=== PATIENT | female | born 1940 | race Caucasian/White ===

== ENCOUNTER → 2016-10-06 | Outpatient (CLI) | payer OTHER, MEDICARE ==
[~2016-10-06] MED LIST: ACET-789 PO; ALLP100T PO; ALPR0.2550 PO; CHOL200018 PO; CHOL4PAC19 PO; CPR500T PO; DICY10CA26 PO; DICY20TA57 PO; ERGO400C PO; HYDR12.570 PO; HYDR1TAB PO; HYDR1TAB86 PO; LISI20TA PO; LISI20TA2 PO; MELO-195 PO; MULT-608 PO; NFAMINITAB PO; NITR100C3 PO; OMEP40CA36 PO; OMG1KC PO; ONDA4TAB11 PO; ONDAN4ODT PO; PHEN200T16 PO; SMV20T PO; SULF-222 PO; VITA80006 PO
[2016-10-06 11:03] LABS: BASOPHILS % (AUTO) 1 % (0-10); EOSINOPHILS # (AUTO) 0.1 10^3/uL (0.0-0.3); EOSINOPHILS % (AUTO) 1 % (0-10); LYMPHOCYTES % (AUTO) 17 % (12-44); MEAN CORPUSCULAR HEMOGLOBIN 29 PG (25-34); MEAN CORPUSCULAR HGB CONC 32 G/DL (32-36); MEAN CORPUSCULAR VOLUME 90 FL (80-99); MEAN PLATELET VOLUME 10.6 FL (7.4-10.4); MONOCYTES # (AUTO) 0.6 X 10^3 (0.0-1.0); MONOCYTES % (AUTO) 11 % (0-12); NEUTROPHILS # (AUTO) 3.9 X 10^3 (1.8-7.8); NEUTROPHILS % (AUTO) 70 % (42-75); PLATELET COUNT 228 10^3/uL (130-400); RED BLOOD COUNT 4.96 10^6/uL (4.35-5.85); WHITE BLOOD COUNT 5.6 10^3/uL (4.3-11.0)
--- NOTE | 2016-10-06 11:30 | Diagnostic Imaging Report ---
INDICATION: Cough and congestion. COMPARISON: 10/25/2011. FINDINGS: The heart size, mediastinal configuration, and pulmonary vascularity are within normal limits. There is no pleural effusion, pneumothorax, or pneumonia. The osseous structures are unremarkable. IMPRESSION: No acute cardiopulmonary abnormality. Dictated by: Dictated on workstation # [id number]
== END ==
LOC: RAD 10:37
PROVIDERS: ATTEND Family Medicine
DX: R05 Cough (principal)
CPT/HCPCS: 36415; 71020; 85025

== ENCOUNTER → 2016-12-17 | Outpatient (CLI) | payer OTHER, MEDICARE ==
[2016-12-17 09:03] LABS: ALBUMIN 3.8 G/DL (3.2-4.5); BILIRUBIN,TOTAL 0.6 MG/DL (0.1-1.0); CALCIUM 8.6 MG/DL (8.5-10.1); CREATININE SERUM 0.97 MG/DL (0.60-1.30); POTASSIUM 3.3 MMOL/L (3.6-5.0); TOTAL PROTEIN 6.5 G/DL (6.4-8.2); URIC ACID 5.4 MG/DL (2.6-7.2)
[2016-12-17 09:25] LABS: THYROID STIMULATING HORMONE 2.65 UIU/ML (0.35-4.94)
== END ==
LOC: LAB 08:29
PROVIDERS: ATTEND Family Medicine
DX: E78.2 Mixed hyperlipidemia (principal); I10 Essential (primary) hypertension; M10.9 Gout, unspecified; R53.83 Other fatigue; E55.9 Vitamin D deficiency, unspecified
CPT/HCPCS: 36415; 80053; 80061; 82306; 84443; 84550

== ENCOUNTER → 2017-04-27 | Outpatient (CLI) | payer OTHER, MEDICARE ==
[2017-04-27 09:55] LABS: CALCIUM 8.7 MG/DL (8.5-10.1); CREATININE SERUM 0.94 MG/DL (0.60-1.30); POTASSIUM 3.7 MMOL/L (3.6-5.0)
== END ==
LOC: RAD 09:21
PROVIDERS: ATTEND Family Medicine
DX: Z12.31 Encounter for screening mammogram for malignant neoplasm of breast (principal); E87.6 Hypokalemia
CPT/HCPCS: 36415; 77067; 80048

== ENCOUNTER → 2017-08-24 | Outpatient (CLI) | payer OTHER, MEDICARE ==
[2017-08-24 08:05] LABS: BILIRUBIN,TOTAL 0.9 MG/DL (0.1-1.0); CREATININE SERUM 0.96 MG/DL (0.60-1.30); POTASSIUM 3.9 MMOL/L (3.6-5.0); TOTAL PROTEIN 6.9 GM/DL (6.4-8.2)
== END ==
LOC: LAB 07:34
PROVIDERS: ATTEND Family Medicine
DX: E87.6 Hypokalemia (principal)
CPT/HCPCS: 36415; 80053

== ENCOUNTER → 2018-04-28 | Outpatient (CLI) | payer OTHER, MEDICARE ==
--- NOTE | 2018-04-28 12:56 | Diagnostic Imaging Report ---
INDICATION: Routine screening. Comparison is made with prior mammogram from 04/27/2017 and 04/20/2016. 2-D and 3-D bilateral screening mammography was performed with CAD. The current study was also evaluated with a Computer Aided Detection (CAD) system. FINDINGS: Both breasts remain heterogeneously dense, limiting the sensitivity of mammography. The parenchymal pattern is stable. Small nodular densities in the outer portions of both breasts are stable. Biopsy clip in the inferior right breast is again noted. No new mass or malignant-appearing microcalcifications are seen. The axillae are unremarkable. IMPRESSION: No mammographic features suspicious for malignancy are identified. ACR BI-RADS Category 2: Benign findings. Result letter will be mailed to the patient. Note: At least 10% of breast cancer is not imaged by mammography. Dictated by: Dictated on workstation # [id number]
== END ==
LOC: RAD 07:42
PROVIDERS: ATTEND Family Medicine
DX: Z12.31 Encounter for screening mammogram for malignant neoplasm of breast (principal)
CPT/HCPCS: 77067

== ENCOUNTER → 2018-07-13 | Outpatient (CLI) | payer OTHER, MEDICARE ==
--- NOTE | 2018-07-13 11:08 | Diagnostic Imaging Report ---
INDICATION: Left foot injury. AP, Oblique and lateral views of the left foot are obtained. FINDINGS: No fracture or malalignment is identified. There is mild narrowing of the interphalangeal joint with mild marginal spurring. No fracture is seen. There is no abnormal lytic or sclerotic focus. Mild plantar calcaneal spurring is noted. IMPRESSION: No acute abnormality is identified. Dictated by: Dictated on workstation # [id number]
--- NOTE | 2018-07-13 11:13 | Diagnostic Imaging Report ---
INDICATION: Twisted left ankle, pain on the medial side. Time of exam 11:15 AM 3 views of the left ankle were obtained. Ankle mortise is well maintained. Talar dome is smooth. No fracture or dislocation is seen. There is a plantar calcaneal spur. IMPRESSION: No acute bony abnormality is detected. Dictated by: Dictated on workstation # [id number]
== END ==
LOC: RAD 10:36
PROVIDERS: ATTEND Nurse Practitioner Family
DX: S99.922A Unspecified injury of left foot, initial encounter (principal); X50.1XXA Overexertion from prolonged static or awkward postures, initial encounter; M25.572 Pain in left ankle and joints of left foot
CPT/HCPCS: 73610; 73630

== ENCOUNTER 2019-01-17 15:33 | Observation (INO) | payer OTHER, MEDICARE | END 2019-01-18 13:40 | disposition home or self-care (01) | LOC: 4TH 15:33 ==

== ENCOUNTER → 2019-05-05 | Outpatient (CLI) | payer OTHER, MEDICARE ==
[~2019-05-05] MED LIST changes: +ALLO100T PO; +ALPR0.5T7 PO; +AMLO5TAB9 PO; +ASCO500T5 PO; +C,E,1CAP2 PO; +CHOL10007 PO; +DOXA1TAB2 PO; +LISI-552 PO; +METO-395 PO; +MULT1TAB69 PO; +PANT40TA2 PO; +POTA8TAB6 PO; +PSYL3.4P5 PO; +SIMV20TA3 PO
--- NOTE | 2019-05-05 19:00 | Diagnostic Imaging Report ---
INDICATION: Routine screening. COMPARISON: Comparison is made with prior mammograms from 04/28/2018 and 04/27/2017. TECHNIQUE: 2-D and 3-D bilateral screening mammography was performed. The current study was also evaluated with a Computer Aided Detection (CAD) system. 3-D tomosynthesis was also performed and reviewed. FINDINGS: Both breasts remain heterogeneously dense, limiting the sensitivity of mammography. Marker clip in the inferior right breast is again noted. Benign nodule in the upper-outer right breast is stable. No new mass or malignant-appearing microcalcifications are seen. The axillae are unremarkable. IMPRESSION: No mammographic features suspicious for malignancy are identified. ACR BI-RADS Category 2: Benign findings. Result letter will be mailed to the patient. Note: At least 10% of breast cancer is not imaged by mammography. Dictated by: Dictated on workstation # [id number]
== END ==
LOC: RAD 14:56
PROVIDERS: ATTEND Family Medicine
DX: Z12.31 Encounter for screening mammogram for malignant neoplasm of breast (principal)
CPT/HCPCS: 77067

== ENCOUNTER → 2019-06-20 | Outpatient (CLI) | payer OTHER, MEDICARE ==
[2019-06-20 08:55] LABS: BASOPHILS % (AUTO) 1 % (0-10); EOSINOPHILS # (AUTO) 0.3 10^3/uL (0.0-0.3); EOSINOPHILS % (AUTO) 4 % (0-10); HEMATOCRIT 40 % (35-52); HEMOGLOBIN 12.4 G/DL (11.5-16.0); LYMPHOCYTES # (AUTO) 1.9 X 10^3 (1.0-4.0); LYMPHOCYTES % (AUTO) 28 % (12-44); MEAN CORPUSCULAR HEMOGLOBIN 29 PG (25-34); MEAN CORPUSCULAR HGB CONC 31 G/DL (32-36); MEAN CORPUSCULAR VOLUME 92 FL (80-99); MEAN PLATELET VOLUME 10.8 FL (7.4-10.4); MONOCYTES # (AUTO) 0.5 X 10^3 (0.0-1.0); MONOCYTES % (AUTO) 8 % (0-12); NEUTROPHILS # (AUTO) 4.1 X 10^3 (1.8-7.8); NEUTROPHILS % (AUTO) 59 % (42-75); PLATELET COUNT 192 10^3/uL (130-400); RED CELL DISTRIBUTION WIDTH 13.3 % (10.0-14.5); WHITE BLOOD COUNT 6.8 10^3/uL (4.3-11.0)
[2019-06-20 09:15] LABS: BILIRUBIN,TOTAL 0.8 MG/DL (0.1-1.0); CALCIUM 8.4 MG/DL (8.5-10.1); CREATININE SERUM 1.06 MG/DL (0.60-1.30); TOTAL PROTEIN 6.6 GM/DL (6.4-8.2)
[2019-06-20 09:37] LABS: FREE T4 (FREE THYROXINE) 0.93 NG/DL (0.70-1.48)
== END ==
LOC: LAB 08:38
PROVIDERS: ATTEND Family Medicine
DX: I10 Essential (primary) hypertension (principal); N28.9 Disorder of kidney and ureter, unspecified; R53.83 Other fatigue
CPT/HCPCS: 36415; 80053; 80061; 84439; 84443; 85025

== ENCOUNTER → 2019-08-02 | Outpatient (CLI) | payer OTHER, MEDICARE ==
[2019-08-02 09:53] LABS: ALBUMIN 4.4 GM/DL (3.2-4.5); BILIRUBIN,TOTAL 0.6 MG/DL (0.1-1.0); CALCIUM 8.7 MG/DL (8.5-10.1); CREATININE SERUM 1.13 MG/DL (0.60-1.30); POTASSIUM 3.5 MMOL/L (3.6-5.0); TOTAL PROTEIN 7.1 GM/DL (6.4-8.2)
== END ==
LOC: LAB 09:20
PROVIDERS: ATTEND Family Medicine
DX: E87.6 Hypokalemia (principal)
CPT/HCPCS: 36415; 80053

== ENCOUNTER → 2019-08-28 | Outpatient (CLI) | payer OTHER, MEDICARE ==
[~2019-08-28] MED LIST changes: +ASCO-413 PO; -ASCO500T5 PO; +CEFD300C3 PO; +FLUT16SP22; -METO-395 PO; +MTP100TCR PO; +OMEP40CA27 PO; +POTA-51; +SIMV20TA26 PO; -SIMV20TA3 PO
[2019-08-28 08:54] LABS: BASOPHILS % (AUTO) 1 % (0-10); EOSINOPHILS # (AUTO) 0.2 10^3/uL (0.0-0.3); EOSINOPHILS % (AUTO) 4 % (0-10); HEMATOCRIT 38 % (35-52); HEMOGLOBIN 12.1 G/DL (11.5-16.0); LYMPHOCYTES # (AUTO) 1.8 X 10^3 (1.0-4.0); LYMPHOCYTES % (AUTO) 36 % (12-44); MEAN CORPUSCULAR HEMOGLOBIN 29 PG (25-34); MEAN CORPUSCULAR HGB CONC 32 G/DL (32-36); MEAN CORPUSCULAR VOLUME 89 FL (80-99); MEAN PLATELET VOLUME 10.5 FL (7.4-10.4); MONOCYTES # (AUTO) 0.5 X 10^3 (0.0-1.0); MONOCYTES % (AUTO) 9 % (0-12); NEUTROPHILS # (AUTO) 2.5 X 10^3 (1.8-7.8); NEUTROPHILS % (AUTO) 51 % (42-75); PLATELET COUNT 188 10^3/uL (130-400); RED CELL DISTRIBUTION WIDTH 13.3 % (10.0-14.5); WHITE BLOOD COUNT 4.9 10^3/uL (4.3-11.0)
[2019-08-28 09:25] LABS: ALBUMIN 4.3 GM/DL (3.2-4.5); BILIRUBIN,TOTAL 0.8 MG/DL (0.1-1.0); CALCIUM 9.2 MG/DL (8.5-10.1); CREATININE SERUM 1.44 MG/DL (0.60-1.30); POTASSIUM 4.3 MMOL/L (3.6-5.0); TOTAL PROTEIN 6.7 GM/DL (6.4-8.2)
[2019-08-28 09:45] LABS: FREE T4 (FREE THYROXINE) 0.81 NG/DL (0.70-1.48)
== END ==
LOC: LAB 08:36
PROVIDERS: ATTEND Family Medicine
DX: I10 Essential (primary) hypertension (principal); E55.9 Vitamin D deficiency, unspecified; D64.9 Anemia, unspecified; R53.83 Other fatigue
CPT/HCPCS: 36415; 80053; 82306; 82607; 82728; 84439; 84443; 85025

== ENCOUNTER 2019-09-19 22:19 | Emergency (ER) | payer OTHER, MEDICARE ==
[~2019-09-19] VITALS: Ht 155 cm; Wt 69.9 kg
[~2019-09-19 22:19] MED LIST changes: -ASCO-413 PO; +ASCO500T5 PO; -CEFD300C3 PO; -FLUT16SP22; +METO-395 PO; -MTP100TCR PO; -OMEP40CA27 PO; -POTA-51; -SIMV20TA26 PO; +SIMV20TA3 PO
[2019-09-19] MEDS ORDERED: FLUT16SP22 (23:00)
[2019-09-19] MEDS ORDERED: POTA-51 (23:00)
[2019-09-19] MEDS ORDERED: ONDANSETRON 4 MG (ZOFRAN) ORAL DISSOLVE TAB PO ONE (23:15)
--- NOTE | 2019-09-20 00:53 | ED General ---
General Chief Complaint: Cough/Cold/Flu Symptoms Stated Complaint: HEADACHE / BODY ACHES / NAUSEA Nursing Triage Note: chills, nausea, bodyache, headache, cramps, nausea. since 2014 Nursing Sepsis Screen: No Definite Risk Source of Information: Patient Exam Limitations: No Limitations History of Present Illness Date Seen by Provider: Sep 20, 2019 Time Seen by Provider: 00:29 Initial Comments Here with report of nausea and body aches. States that she gets this occasionally. Does have history of disorder after gallbladder surgery and then had a ductal stone with surgery then. Has not had problems with that again but does occasionally get episodes of vomiting and aches like this. Did receive ondansetron shortly after arrival and that has helped her significantly and overall is feeling better now. Also reports nosebleeds a heavy, increasingly more frequent recently. Does have history of sinus infections and complains of sinus pressure currently. Did have a bleed to the left nostril tonight. Timing/Duration: 4-6 Hours Severity: Moderate Modifying Factors: improves with Medication Associated Systoms: No Chest Pain, No Cough; Fever/Chills, Nausea/Vomiting; No Weakness Allergies and Home Medications Allergies Coded Allergies: No Known Drug Allergies (Unverified , 04/13/11) Home Medications Allopurinol 100 Mg Tablet, 100 MG PO DAILY Prescribed by: JULIETH ABDALLA on 01/18/19 1256 Alprazolam 0.5 Mg Tablet, 0.5 MG PO TID PRN for ANXIETY, (Reported) Amlodipine Besylate 5 Mg Tablet, 5 MG PO DAILY in AM Prescribed by: JULIETH ABDALLA on 01/18/19 1256 Metoprolol Succinate 100 Mg Tab.er.24h, 100 MG PO HS Prescribed by: JULIETH ABDALLA on 01/18/19 1256 Pantoprazole Sodium 40 Mg Tablet.dr, 40 MG PO BID Prescribed by: JULIETH ABDALLA on 01/18/19 1256 Simvastatin 20 Mg Tablet, 20 MG PO HS, (Reported) Patient Home Medication List Home Medication List Reviewed: Yes Review of Systems Review of Systems Constitutional: see HPI, chills, fever EENTM: epistaxis, nose congestion Respiratory: No cough, No short of breath Cardiovascular: no symptoms reported Gastrointestinal: No abdominal pain; nausea; No vomiting Genitourinary: no symptoms reported Musculoskeletal: No back pain; muscle weakness Skin: no symptoms reported Psychiatric/Neurological: No Symptoms Reported All Other Systems Reviewed Negative Unless Noted: Yes Past Pfasynb-Frjohf-Ftlfkc Hx Past Med/Social Hx: Reviewed Nursing Past Med/Soc Hx Patient Social History Alcohol Use: Denies Use Recreational Drug Use: No Smoking Status: Never a Smoker 2nd Hand Smoke Exposure: No Recent Foreign Travel: No Contact w/Someone Who Travel: No Recent Infectious Disease Expo: No Recent Hopitalizations: No Physical Abuse: No Sexual Abuse: No Mistreated: No Fear: No Immunizations Up To Date Tetanus Booster (TDap): Unknown Date of Pneumonia Vaccine: Sep 20, 2010 Date of Influenza Vaccine: Jun 20, 2011 Seasonal Allergies Seasonal Allergies: Yes Past Medical History Surgeries: Yes (ERCP) Gallbladder, Hysterectomy, Orthopedic Respiratory: No Cardiac: Yes High Cholesterol, Hypertension Neurological: No : No Reproductive Disorders: Yes [employer] History: Hysterectomy, Menopausal Genitourinary: No Gastrointestinal: Yes Pancreatitis Musculoskeletal: Yes Arthritis Endocrine: No HEENT: Yes Cataract Cancer: No Psychosocial: Yes Anxiety Integumentary: No Blood Disorders: No Family Medical History Reviewed Nursing Family Hx No Pertinent Family Hx Physical Exam Vital Signs Vital Signs - First Documented 09/19/19 22:42 Temp 37.1 Pulse 87 Resp 16 B/P (MAP) 183/85 (117) Pulse Ox 98 O2 Delivery Room Air Capillary Refill : Less Than 3 Seconds Height, Weight, BMI Height: 5'1.00" Weight: 133lbs. 8.0oz. [id number]; 29.00 BMI Method:Stated General Appearance: No Apparent Distress, WD/WN HEENT: PERRL/EOMI, Pharynx Normal, Other (left nostril with old blood. Moderate erythema bilateral. Frontal sinus tenderness as well as maxillary sinus tenderness noted.) Neck: Non Tender, Supple Respiratory: Lungs Clear, Normal Breath Sounds Cardiovascular: Regular Rate, Rhythm, No Murmur Gastrointestinal: Non Tender, Soft Extremity: Non Tender, No Calf Tenderness Neurologic/Psychiatric: Alert, Oriented x3 Skin: Normal Color, Warm/Dry Progress/Results/Core Measures Suspected Sepsis Recent Fever Within 48 Hours: No Infection Criteria Present: None New/Unexplained Altered Menta: No Sepsis Screen: No Definite Risk SIRS Temperature: Pulse: 87 Respiratory Rate: 16 Blood Pressure 183 /85 Mean: 117 Results/Orders Micro Results Microbiology 09/19/19 Influenza Types A,B Antigen (EMERITA) - Final, Complete My Orders Orders - ANNELIESE GIBBS MD Influenza A And B Antigens (09/19/19 23:00) Ondansetron Oral Dissolve Tab (Zofran (09/19/19 23:15) Medications Given in ED Current Medications Medications Dose Ordered Sig/Do Route Start Time Stop Time Status Last Admin Dose Admin Ondansetron HCl 4 mg ONCE ONCE PO 09/19/19 23:15 09/19/19 23:16 DC 09/19/19 23:13 4 MG Vital Signs/I&O 09/19/19 09/19/19 22:42 22:42 Temp 37.1 Pulse 87 Resp 16 B/P (MAP) 183/85 (117) Pulse Ox 98 O2 Delivery Room Air Room Air Capillary Refill : Less Than 3 Seconds Blood Pressure Mean: 117 Progress Note : Progress Note Seen and evaluated. Ondansetron 4 mg by mouth. Influenza screen ordered. This was negative. Overall she is feeling better. She would like to go home and continue on Zofran as needed as well as we will initiate treatment for probable sinusitis given 2 weeks of sinus symptoms in the nose bleeds. She will follow-up with Dr. Abdalla and I will send a copy of the chart to her. She may need evaluation with Dr. Olivarez and she has had that done before has considered it at least given her nose bleeds and chronic sinus problems. Discharged home with return precautions. Patient verbalize understanding instructions and agreement with plan. Departure Impression Primary Impression: Acute sinusitis Qualified Codes: J01.10 - Acute frontal sinusitis, unspecified Additional Impression: Nausea & vomiting Qualified Codes: R11.2 - Nausea with vomiting, unspecified Disposition: HOME, SELF-CARE Condition: Improved Departure-Patient Inst. Decision time for Depature: 01:00 Referrals: JULIETH ABDALLA DO (PCP/Family) Primary Care Physician Patient Instructions: Sinusitis, Adult (DC), Nausea and Vomiting, Adult Add. Discharge Instructions: All discharge instructions reviewed with patient and/or family. Voiced understanding. Take medications as directed. Follow-up with Dr. Abdalla this week for recheck and further evaluation. Consider follow-up with Dr. Olivarez as needed. You may take Tylenol/acetaminophen 1000 mg every 6-8 hours as needed for pain. Humidified air especially at nighttime to help decrease nose bleeds. Continue nasal rinses as you are already doing. Return for worse pain, fever, vomiting, weakness, breathing problems or other concerns as needed. Scripts Ondansetron (Ondansetron Odt) 4 Mg Tab.rapdis 4 MG PO Q6H PRN for NAUSEA/VOMITING, #12 TAB 0 Refills Prov: ANNELIESE GIBBS MD 09/20/19 Cefdinir (Cefdinir) 300 Mg Capsule 300 MG PO BID, #20 CAP 0 Refills Prov: ANNELIESE GIBBS MD 09/20/19 Copy Copies To 1: JULIETH BADALLA TIMOTHY D MD Sep 20, 2019 00:53
[2019-09-20] MEDS ORDERED: CEFD300C3 PO (01:02)
[2019-09-20] MEDS ORDERED: ONDA4TAB11 PO (01:02)
[2019-09-20 01:10] VITALS: BP 156/75
== END 2019-09-20 01:12 | disposition home or self-care (01) ==
LOC: EDUNIT# 22:19 → ER 22:20
DX: J01.90 Acute sinusitis, unspecified (principal); R11.2 Nausea with vomiting, unspecified; I10 Essential (primary) hypertension; E78.00 Pure hypercholesterolemia, unspecified; F41.9 Anxiety disorder, unspecified; Z90.710 Acquired absence of both cervix and uterus
CPT/HCPCS: 87804